=== PATIENT | female | born 1945 | race Caucasian/White ===

== ENCOUNTER → 2018-01-25 | Outpatient (CLI) | payer MEDICARE, OTHER ==
[~2018-01-25] MED LIST: ASPI81CH PO; CHOL10002; CITRACAL-VIT D1 EACH PO; Exforge 10-3201 EACH PO; GAVILAX17 GM PO; HIPREX1 GM PO; HYDCHL25 PO; LEVSOD125 PO; POTCHL10ER PO; PRAV20 PO; TOLT4 PO; Vitamin C100 M1 PO; Zofran Odt8 MG SL
== END ==
LOC: LAB EV 15:41 → LAB SHORT 15:41
DX: R82.79 Other abnormal findings on microbiological examination of urine (principal)
CPT/HCPCS: 87086

== ENCOUNTER → 2018-08-02 | Outpatient (CLI) | payer MEDICARE, OTHER ==
[2018-08-03 14:03] LABS: Stool Occult Bld Immuno 1 Negative (NEGATIVE); Stool Occult Bld Immuno 2 Negative (NEGATIVE)
== END | disposition home or self-care (01) ==
LOC: LAB EV 10:45 → LAB FUT 06-22 10:05 → EDSTATUS 06-22 10:05
PROVIDERS: Internal Medicine Gastroenterology
DX: Z79.01 Long term (current) use of anticoagulants (principal); Z51.81 Encounter for therapeutic drug level monitoring; Z12.11 Encounter for screening for malignant neoplasm of colon; K75.4 Autoimmune hepatitis
CPT/HCPCS: G0328

== ENCOUNTER → 2018-11-09 | Outpatient (CLI) | payer MEDICARE, OTHER | LOC: LAB EV 12:03 → LAB SHORT 12:03 | DX: N39.0 Urinary tract infection, site not specified (principal) | CPT/HCPCS: 87077; 87086; 87186 ==

== ENCOUNTER → 2019-07-24 | Outpatient (CLI) | payer MEDICARE, OTHER ==
[2019-07-24 16:54] LABS: Adenovirus F 40/41 Not Detected (NOT DETECT); Astrovirus Not Detected (NOT DETECT); Campylobacter Sp Not Detected (NOT DETECT); Cryptosporidium Not Detected (NOT DETECT); Cyclospora Cayetanensis Not Detected (NOT DETECT); E. Coli O157 Not Detected (NOT DETECT); Entamoeba Histolytica Not Detected (NOT DETECT); Enteroaggregative E. coli-EAEC Not Detected (NOT DETECT); Enteropathogenic E. coli-EPEC Not Detected (NOT DETECT); Enterotoxigenic E. coli-ETEC Not Detected (NOT DETECT); Giardia Lamblia Not Detected (NOT DETECT); Norovirus GI/GII Not Detected (NOT DETECT); Plesiomonas Shigelloides Not Detected (NOT DETECT); Rotavirus A Not Detected (NOT DETECT); Salmonella Sp Not Detected (NOT DETECT); Sapovirus Not Detected (NOT DETECT); Shiga Toxin-prod E. coli-STEC Not Detected (NOT DETECT); Shigella/Enteroin E. coli-EIEC Not Detected (NOT DETECT); Vibrio Cholerae Not Detected (NOT DETECT); Vibrio Sp Not Detected (NOT DETECT); Yersinia Enterocolitica Not Detected (NOT DETECT)
== END | disposition home or self-care (01) ==
LOC: LAB SHORT 11:47 → OLS 11:47 → LAB FUT 07-22 08:55
PROVIDERS: Internal Medicine Gastroenterology
DX: R19.7 Diarrhea, unspecified (principal)
CPT/HCPCS: 0097U; 83993

== ENCOUNTER → 2020-02-18 | Outpatient (CLI) | payer MEDICARE, OTHER | END | disposition home or self-care (01) | LOC: PLD 11:01 → LAB SHORT 11:01 | DX: L82.1 Other seborrheic keratosis (principal) | CPT/HCPCS: 88305 ==

== ENCOUNTER → 2024-07-31 | Outpatient (CLI) | payer MEDICARE, OTHER ==
[2024-07-31 16:59] LABS: Source, Urine Voided
[2024-07-31 18:01] LABS: Appearance, Urine Hazy (Clear); Bilirubin, Urine Neg (Neg); Blood, Urine 2+ (Neg); Color, Urine Yellow (P-Yellow); Glucose Qualitative, Urine Neg (Neg); Ketones, Urine Neg (Neg); Leukocyte Esterase, Urine 2+ (Neg); Nitrite, Urine Neg (Neg); Protein, Urine 1+ (Neg); Urobilinogen, Urine NORM (Normal)
[2024-07-31 18:08] LABS: White Blood Cells, Urine 25-50 /hpf (0-5)
[2024-07-31 18:09] LABS: Bacteria Many /hpf; Red Blood Cells, Urine 0-2 /hpf (0-2); Squamous Epithelial Cells Mod /hpf (Few)
[2024-07-31 19:00] LABS: Protein, Urine Random 23.8 mg/dL (0.0-11.9); Protein/Creat Ratio, Ur Random 0.2
== END | disposition home or self-care (01) ==
LOC: LAB 16:48 → EDSTATUS 07-30 08:45 → LAB FUT 07-30 08:45
PROVIDERS: Hospitalist
DX: N18.32 Chronic kidney disease, stage 3b (principal); R80.9 Proteinuria, unspecified
CPT/HCPCS: 81001; 82570; 84156; 87077; 87086; 87186

== ENCOUNTER 2025-03-14 06:36 | Day surgery (SDC) | payer MEDICARE, OTHER ==
[~2025-03-14] VITALS: Ht 162.6 cm; Wt 111.5 kg
[2025-03-14] MEDS ORDERED: APPLE CIDER VI250 MG (06:57)
[2025-03-14] MEDS ORDERED: ELLURA200 MG (06:58)
[2025-03-14] MEDS ORDERED: LACT (06:58)
[2025-03-14] MEDS ORDERED: MULTIA DAILY M1 EACH (06:58)
[2025-03-14] MEDS ORDERED: METO100ER (06:58)
[2025-03-14] MEDS ORDERED: ROSUVASTATIN CA10 MG (06:58)
[2025-03-14] MEDS ORDERED: TOCO1000 (06:59)
[2025-03-14 09:11] VITALS: BP 116/67
--- NOTE | 2025-03-14 09:18 | NUR ---
03/14/25 0918 Anju Barkley "PAIN GETTING BETTER" PER PATIENT. PT INSTRUCTED TO LET RN KNOW WHEN AND IF SHE FEELS WELL ENOUGH TO GET HER IV OUT AND GET DRESSED. CONT TO MONITOR.
== END 2025-03-14 09:51 | disposition home or self-care (01) ==
LOC: ORSCSDS 06:36
PROVIDERS: Internal Medicine Gastroenterology
PROC: 0DBM8ZX Excision of Descending Colon, Via Natural or Artificial Opening Endoscopic, Diagnostic (ICD-10-PCS; principal; 2025-03-14 08:00)
DX: Z12.11 Encounter for screening for malignant neoplasm of colon (principal); D12.2 Benign neoplasm of ascending colon; E66.01 Morbid (severe) obesity due to excess calories; Z68.41 Body mass index [BMI] 40.0-44.9, adult; I12.9 Hypertensive chronic kidney disease with stage 1 through stage 4 chronic kidney disease, or unspecified chronic kidney disease; N18.9 Chronic kidney disease, unspecified; E78.5 Hyperlipidemia, unspecified; E03.9 Hypothyroidism, unspecified; Z79.899 Other long term (current) drug therapy
CPT/HCPCS: 88305; J2704